=== PATIENT | male | born 1945 | race Caucasian/White ===

== ENCOUNTER 2018-11-08 12:12 | Inpatient (IN) | payer MEDICARE ==
[~2018-11-08] VITALS: Ht 195.6 cm; Wt 117.0 kg
[2018-11-08] MEDS ORDERED: FAMOTIDINE 20MG/2ML VIAL IV STA (14:46)
[2018-11-08] MEDS ORDERED: SODIUM CHLORIDE 0.9% 1,000 ML IV ONE ×2 (14:46→18:30)
[2018-11-08] MEDS ORDERED: ONDANSETRON HCL 4MG/2ML INJ IV STA (14:46)
[2018-11-08 15:34] LABS: CHLORIDE 95 mEq/L (98-107); HEMATOCRIT. 46.7 % (42.0-52.0); HEMOGLOBIN. 15.8 g/dL (14.0-18.0); MEAN CORPUSCULAR HEMOGLOBIN 31.2 pg (28.0-32.0); MEAN CORPUSCULAR VOLUME 92.5 fL (80.0-94.0); MEAN PLATELET VOLUME 8.2 fl (7.4-10.4); PLATELET 196 x1000/uL (130-400); RED BLOOD CELL COUNT 5.05 mill/uL (4.7-6.1); RED CELL DISTRIBUTION WIDTH 13.8 % (11.6-14.6)
[2018-11-08 15:38] LABS: INR 1.1; PROTHROMBIN TIME 10.8 sec (9.1-11.1)
[2018-11-08 15:39] LABS: ETHANOL BLOOD < 10 mg/dL
[2018-11-08] MEDS ORDERED: POTASSIUM CHLORIDE 20MEQ TABLET SR PO ONE (16:15)
[2018-11-08 16:16] LABS: PLATELET ESTIMATE NORMAL
[2018-11-08 16:30] LABS: PHOSPHORUS 5.1 mg/dL (2.5-4.9)
[2018-11-08] MEDS ORDERED: GUAIFENESIN 200MG/10ML SUGAR FREE UDC PO PRN (22:30)
[2018-11-08] MEDS ORDERED: ONDANSETRON HCL 4MG/2ML INJ IV PRN (22:30)
[2018-11-08] MEDS ORDERED: LEVOFLOXACIN 500MG PREMIX 100 ML IV SCH (22:30)
[2018-11-08] MEDS ORDERED: MAGNESIUM/ALUMINUM HYDROXIDE/SIMETHICONE 30ML UDC PO PRN (22:30)
[2018-11-08] MEDS ORDERED: HYDRALAZINE 20MG/ML VIAL IV PRN (22:30)
[2018-11-08] MEDS ORDERED: CLONIDINE 0.1MG TABLET PO PRN (22:30)
[2018-11-08] MEDS ORDERED: IPRATROPIUM/ALBUTEROL 0.5-3(2.5)MG/3ML NEB INH PRN (22:30)
[2018-11-08] MEDS ORDERED: HYDROMORPHONE HCL/PF 2MG/ML CPJ IV PRN (22:30)
[2018-11-08] MEDS ORDERED: HYDROCODONE/ACETAMINOPHEN 5/325MG TABLET PO PRN (22:30)
[2018-11-08] MEDS ORDERED: DIPHENHYDRAMINE 50MG/ML VIAL IV PRN (22:30)
[2018-11-08] MEDS ORDERED: DOCUSATE SODIUM 100MG CAPSULE PO PRN (22:30)
[2018-11-08] MEDS ORDERED: ACETAMINOPHEN 325MG TABLET PO PRN (22:30)
[2018-11-08] MEDS ORDERED: LEVOFLOXACIN 500MG PREMIX 100 ML IV NR (23:15)
[2018-11-09] VITALS (7 sets, daily range): BP systolic 94–123; BP diastolic 51–89
[2018-11-09] MEDS ORDERED: SODIUM CHLORIDE 0.9% 1,000 ML IV SCH (03:00)
[2018-11-09 06:34] LABS: HEMATOCRIT. 45.8 % (42.0-52.0); HEMOGLOBIN. 15.6 g/dL (14.0-18.0); MEAN CORPUSCULAR HEMOGLOBIN 31.5 pg (28.0-32.0); MEAN CORPUSCULAR VOLUME 92.4 fL (80.0-94.0); MEAN PLATELET VOLUME 8.8 fl (7.4-10.4); PLATELET 164 x1000/uL (130-400); RED BLOOD CELL COUNT 4.96 mill/uL (4.7-6.1); RED CELL DISTRIBUTION WIDTH 13.8 % (11.6-14.6)
[2018-11-09 06:45] LABS: CHLORIDE 101 mEq/L (98-107)
[2018-11-09 07:08] LABS: LDL CHOLESTEROL 34 mg/dL (5-100)
[2018-11-09 07:09] LABS: CREATINE KINASE MB FRACTION 21.6 ng/mL (0.5-3.6); HDL CHOLESTEROL 64 mg/dL (40-59); T4 FREE 0.98 ng/dL (0.76-1.46)
[2018-11-09 07:42] LABS: CREATINE KINASE 2713 IU/L (39-308)
[2018-11-09] MEDS ORDERED: POTASSIUM CHLORIDE 20MEQ TABLET SR PO NR ×2 (08:45→23:15)
[2018-11-09] MEDS: ASPIRIN 81MG EC TABLET PO SCH (08:50)
[2018-11-09] MEDS: ENOXAPARIN 30MG/0.3ML SYR SUBCUT SCH (08:51)
[2018-11-09] MEDS ORDERED: SODIUM BICARBONATE 8.4% 1 MEQ/ML 50ML SYR IV NR (10:00)
[2018-11-09] MEDS ORDERED: POTASSIUM CHLORIDE 20MEQ/PACKET PO NR (10:00)
[2018-11-09] MEDS ORDERED: INFLUENZA VIRUS VACCINE(AFLURIA) 0.5ML SYR IM ONE (10:00)
[2018-11-09 10:34] LABS: BG BASE EXCESS -7.4 mmol/L (-2.0-2.0); BG CARBOXYHEMOGLOBIN 0.5 % (0.5-1.5); BG DEOXYHEMOGLOBIN 2.9 % (0.0-5.0); BG HCO3 ACT 13.2 mmol/L (22.0-26.0); BG METHEMOGLOBIN 0.7 % (0.0-1.5); BG OXYGEN SATURATION 97.1 % (92.0-98.5); BG OXYHEMOGLOBIN 95.9 % (94.0-97.0); BG PCO2 18.2 mmHg (35.0-45.0); BG PH 7.477 (7.350-7.450); BG PO2 93.5 mmHg (75.0-100.0); BG SAMPLE SITE RIGHT RADIAL; BG VENT MODE ROOM AIR
[2018-11-09] MEDS ORDERED: POTASSIUM CHLORIDE INJ 40 MEQ in DEXT 5% WATER 250 ML IV NR (11:00)
[2018-11-09] MEDS: SODIUM BICARBONATE 100 MEQ in DEXTROSE 5% WATER 1,000 ML IV SCH ×2 (11:16→19:52)
[2018-11-09 12:42] LABS: T4 FREE 0.95 ng/dL (0.76-1.46)
[2018-11-09] MEDS: SODIUM CHLORIDE 0.9% INJ 3ML FLUSH IVF SCH ×2 (14:45→21:37)
[2018-11-09 16:20] LABS: PLATELET ESTIMATE NORMAL
[2018-11-09 18:05] LABS: CREATINE KINASE MB FRACTION 20.2 ng/mL (0.5-3.6)
[2018-11-09] MEDS ORDERED: LEVOFLOXACIN 250MG PREMIX 50 ML IV SCH (23:00)
[2018-11-10] VITALS: BP 101/55
[2018-11-10] MEDS: SODIUM BICARBONATE 100 MEQ in DEXTROSE 5% WATER 1,000 ML IV SCH (03:02)
[2018-11-10 04:00] VITALS: BP 92/58
[2018-11-10] MEDS: SODIUM CHLORIDE 0.9% INJ 3ML FLUSH IVF SCH (05:45)
[2018-11-10 08:26] VITALS: BP 102/55
[2018-11-10] MEDS: ASPIRIN 81MG EC TABLET PO SCH (08:38)
[2018-11-10] MEDS: ENOXAPARIN 30MG/0.3ML SYR SUBCUT SCH (08:39)
[2018-11-10 09:20] VITALS: BP 102/55
[2018-11-11 19:07] LABS: OVA & PARASITE EXAM Final report (.)
== END 2018-11-10 10:16 | disposition home or self-care (01) | DRG 871 ==
LOC: ER 13:19 → 8WST 16:12 → ENRESERV 11-09 01:50
PROVIDERS: ADMIT Internal Medicine; ATTEND Internal Medicine
DX: A41.50 Gram-negative sepsis, unspecified (principal); N17.0 Acute kidney failure with tubular necrosis; N39.0 Urinary tract infection, site not specified; J98.11 Atelectasis; M62.82 Rhabdomyolysis; E87.2 Acidosis; E87.1 Hypo-osmolality and hyponatremia; N28.1 Cyst of kidney, acquired; E87.6 Hypokalemia; E86.9 Volume depletion, unspecified; E66.9 Obesity, unspecified; E87.8 Other disorders of electrolyte and fluid balance, not elsewhere classified; E78.5 Hyperlipidemia, unspecified; I10 Essential (primary) hypertension; F10.10 Alcohol abuse, uncomplicated; Z68.30 Body mass index [BMI] 30.0-30.9, adult; Z98.84 Bariatric surgery status
CPT/HCPCS: 36415; 36600; 71045; 76770; 78582; 80061; 82375; 82550; 82553; 82805; 83036; 83605; 83735; 83880; 84100; 84132; 84439; 84443; 84484; 85379; 87077; 87177; 87186; 87209; 87493; 89055; 90686; 93005; 93970; 96361; 96374; 96375; 99285; A9558; J1650; J1956; J2405; J3480; J3490; J7030; J7060; J7070